=== PATIENT | female | born 1970 | race Caucasian/White ===

== ENCOUNTER 2021-01-25 16:02 | Outpatient (CLI) | payer OTHER | END 2021-01-25 16:03 | disposition home or self-care (01) | LOC: BICRAD 16:02 | PROVIDERS: ATTEND Family Medicine | DX: M79.671 Pain in right foot (principal); S92.324A Nondisplaced fracture of second metatarsal bone, right foot, initial encounter for closed fracture ==

== ENCOUNTER 2021-12-18 08:40 | Outpatient (CLI) | payer BC | END 2021-12-18 08:41 | disposition home or self-care (01) | LOC: BICRAD 08:40 | PROVIDERS: ATTEND Family Medicine | DX: R07.81 Pleurodynia (principal) ==

== ENCOUNTER 2022-12-12 13:18 | Outpatient (CLI) | payer BC | END 2022-12-12 13:19 | disposition home or self-care (01) | LOC: SCSRAD 13:18 | PROVIDERS: ATTEND Nurse Practitioner Family | DX: S99.911A Unspecified injury of right ankle, initial encounter (principal) ==

== ENCOUNTER 2025-03-24 11:40 | Outpatient (CLI) | payer BC | END 2025-03-24 11:41 | disposition home or self-care (01) | LOC: SCSRAD 11:40 | PROVIDERS: ATTEND Student in an Organized Health Care Education/Training Program | DX: M25.552 Pain in left hip (principal); M25.551 Pain in right hip; M16.11 Unilateral primary osteoarthritis, right hip ==